=== PATIENT | female | born 1980 | race American Indian/Alaskan Native ===

== ENCOUNTER 2018-06-05 11:45 | Observation (INO) | payer MEDICAID ==
[2018-06-05] MEDS ORDERED: DEEP SEA NS PRN (11:47)
[2018-06-05] MEDS ORDERED: COLACE PO PRN (11:47)
[2018-06-05] MEDS ORDERED: TYLENOL PO PRN (11:47)
[2018-06-05] MEDS ORDERED: MYLICON PO PRN (11:47)
[2018-06-05] MEDS ORDERED: ZOFRAN IV PRN (11:47)
[2018-06-05] MEDS ORDERED: LACTATED RINGERS 1,000 ML IV SCH (12:00)
[2018-06-05] MEDS ORDERED: CELESTONE SOLUSPAN IM SCH (12:00)
[2018-06-05] MEDS: PROVENTIL IH SCH ×4 (12:28→21:06)
[2018-06-05 12:34] LABS: Basophils % (Auto) 0.4 % (0.0-1.8); Eosinophils # (Auto) 0.2 K/mm3 (0.0-0.4); Eosinophils % (Auto) 2.1 % (0.0-4.3); Hematocrit 33.3 % (30.3-42.9); Hemoglobin 10.8 gm/dl (10.1-14.3); Lymphocytes % (Auto) 19.9 % (13.4-35.0); Mean Corpuscular HGB Conc 33 % (30-34); Mean Corpuscular Hemoglobin 28 pg (28-32); Mean Corpuscular Volume 85 fl (79-97); Monocytes # (Auto) 0.4 K/mm3 (0.0-0.8); Monocytes % (Auto) 4.3 % (0.0-7.3); Platelet Count 237 K/mm3 (140-440); Red Blood Count 3.91 M/mm3 (3.65-5.03); Red Cell Distribution Width 13.9 % (13.2-15.2)
[2018-06-05 12:42] LABS: Bilirubin,Urine NEG (Negative); Blood,Urine NEG (Negative); Color,Urine Yellow (Yellow); Protein,Urine <15 mg/dL mg/dL (Negative); WBC,Urine < 1.0 /HPF (0.0-6.0)
[2018-06-05 13:11] LABS: Uric Acid 3.2 mg/dL (3.5-7.6)
[2018-06-05 13:22] LABS: Alanine Aminotransferase < 5 units/L (7-56)
--- NOTE | 2018-06-05 14:18 | XRay Report ---
AP CHEST: HISTORY: Dyspnea AP view of the chest demonstrates a normal mediastinal and cardiac contour with clear lungs and normal bony and soft tissue structures. IMPRESSION: Unremarkable AP chest.
--- NOTE | 2018-06-05 14:37 | Ultrasound Report ---
ULTRASOUND BIOPHYSICAL PROFILE: History: well being Technique: Transabdominal ultrasound with Doppler interrogation. 2 - breathing movements 2 - movements 2 - posture and tone 2 - Qualitative amniotic fluid volume 8 - TOTAL SCORE OF POSSIBLE 8 Heart Rate (bpm) 140
--- NOTE | 2018-06-05 14:40 | Ultrasound Report ---
OB ULTRASOUND History well being, chronic hypertension. Technique: Transabdominal ultrasound with Doppler interrogation. Gestation: Single Position: Cephalic Amniotic Fluid: Normal MAYRA = 9.3 cm Placenta: Fundal Placental Grade: 2 Heart Rate: 146 BPM Cervical length: 5.0 cm (Normal > 3 cm) BPD: 7.8 cm = 31 w 3 d HC: 29.1 cm = 32 w 0 d AC: 29.6 cm = 33 w 4 d FL: 6.1 cm = 31 w 4 d HC/AC Ratio: 0.98 Cephalic Index: 77.7 Estimated Weight: 2013 grams Clinical age = 31 w 3 d EDC: 08/04/18 US Gest. Age = 32 w 1 d EDC: 07/30/18 IMPRESSION: Viable, single intrauterine as described.
--- NOTE | 2018-06-05 17:36 | History and Physical Report ---
History of Present Illness Date of examination: 06/05/18 Date of admission: 06/05/18 14:35 Chief complaint: Hypertension, Dyspnea History of present illness: Pt is a 37 year old -Irish female CARLOS ENRIQUE 08/04/18 at 31w3d who presents from the office with wheezing and dyspnea at rest as well as hypertension 158/102. She reports good movement and denies vaginal bleeding, leakage of fluid or contractions as well as blurred vision, headache or RUQ pain. Of note, the patient does have a h/o asthma, last attack 2 months ago but she does not have any inhalers at home. She also has a h/o chronic hypertension on Labetalol 200 mg BID, and she did take her medication this morning. She has had two visits at [facility] since transfer into care from [facility] with comanagement by [facility]. Her is complicated by asthma, chronic hypertension on Labetalol, Advanced Maternal Age, H/o Preeclampsia, H/o on 17 hydroxyprogesterone, Trichomonas treated in January 2018, Genital Herpes, Obesity, and previous x 1. 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, trichomonas (January 2018, treated ) Social history: no significant social history - Obstetrical History Expected Date of Delivery: 08/04/18 Actual Gestation: 31 Week(s) 3 Day(s) : 6 Para: 3 Hx # Term Pregnancies: 2 Number of Pregnancies: 1 Spontaneous Abortions: 1 Induced : 1 Number of Living Children: 2 Medications and Allergies Allergies Allergy/AdvReac Type Severity Reaction Status Date / Time No Known Allergies Allergy Unverified 06/05/18 11:54 Home Medications Medication Instructions Recorded Confirmed Last Taken Type No Known Home Medications [No 06/05/18 06/05/18 Unknown History Reported Home Medications] Active Meds: Active Medications Acetaminophen (Tylenol) 650 mg PO Q4H PRN PRN Reason: Pain MILD(1-3)/Fever >100.5/MEADOWS Albuterol (Proventil) 2.5 mg IH Q4HRT [facility] Last Admin: 06/05/18 16:28 Dose: 2.5 mg Betamethasone Acet/Betameth SodPhos ([place] Soluspan) 12 mg IM Q24HR [facility] Stop: 06/06/18 10:01 Last Admin: 06/05/18 14:22 Dose: 12 mg Docusate Sodium (Colace) 100 mg PO Q12H PRN PRN Reason: Constipation Lactated Ringer's (Lactated Ringers) 1,000 mls @ 125 mls/hr IV DIRECT [facility] Labetalol HCl (Normodyne) 400 mg PO BID [facility] Multivitamins/Iron/Calcium ( Vitamin) 1 each PO QDAY [facility] Ondansetron HCl (Zofran) 4 mg IV Q6H PRN PRN Reason: Nausea And Vomiting Simethicone (Mylicon) 80 mg PO Q6H PRN PRN Reason: Gas pain Sodium Chloride (Deep Sea) 2 spray NS Q4H PRN PRN Reason: Congestion Review of Systems All systems: negative - Vital Signs Vital signs: Vital Signs Pulse Pulse Ox 106 H 100 06/05/18 11:52 06/05/18 11:52 Temp Pulse Resp BP Pulse Ox 98.7 F 97 H 20 129/74 100 06/05/18 15:58 06/05/18 17:34 06/05/18 16:45 06/05/18 16:43 06/05/18 17:34 - Physical Exam Breasts: Positive: deferred Cardiovascular: Regular rate Lungs: Positive: Clear to auscultation Abdomen: Positive: soft (obese, gravid). Negative: tenderness Uterus: Positive: enlarged (gravid ) Extremities: Positive: edema (trace) - Obstetrical FHR: auscultation normal Uterine Contraction Monitor Mode: External Uterine Contraction Pattern: Absent Uterine Tone Measurement Phase: Resting Results Result Diagrams: 06/05/18 11:50 06/05/18 11:50 Abnormal lab results 06/05/18 06/05/18 Range/Units 11:50 11:50 Seg Neutrophils % 73.3 H (40.0-70.0) % Creatinine 0.4 L (0.7-1.2) mg/dL Uric Acid 3.2 L (3.5-7.6) mg/dL ALT < 5 L (7-56) units/L All other labs normal. Assessment and Plan A: IUP at 31w3d Dyspnea and wheezing with h/o asthma Chronic hypertension on Labetalol 200 mg BID with elevated blood pressures Previous x 1 Advanced Maternal Age H/o Preeclampsia Obesity H/o on 17 hydroxyprogesterone Trichomonas treated in January 2018 Genital Herpes P: Admit to antepartum service Albuterol Nebulizer treatment Chest X ray with abdominal shield Increase Labetalol to 400 mg BID OB ultrasound and BPP PIH labs Serial BPs Betamethasone series MFM consult Continuous monitoring Closely monitor maternal and status
[2018-06-05] MEDS: NORMODYNE PO SCH (21:30)
[2018-06-06] MEDS ORDERED: FIORICET PO PRN (02:03)
--- NOTE | 2018-06-06 08:23 | Progress Note ---
Assessment and Plan A: IUP at 31w4d Dyspnea and wheezing with h/o asthma- much improved Chronic hypertension on Labetalol 200 mg BID with elevated blood pressures Previous x 1 Advanced Maternal Age H/o Preeclampsia Obesity H/o on 17 hydroxyprogesterone Trichomonas treated in January 2018 Genital Herpes P: Await 24 hr urine protein collection and second dose of Betamethasone Follow up MFM consult Consider discharge later today with close outpatient follow up Subjective - Subjective Date of service: 06/06/18 Principal diagnosis: IUP at 31 wks, astham exacerbation, hypertension Interval history: No overnight events. Pt had headache overnight, relieved by Fioricet. BP WNL. Pt reports no difficulty breathing after nebulizer treatments. Patient reports: movement normal, no new complaints, no loss of fluid, no vaginal bleeding, no contractions Objective - Vital Signs Vital Signs: Vital Signs - 12hr 06/05/18 06/05/18 06/05/18 20:24 20:29 20:35 Temperature Pulse Rate 112 H 105 H 110 H Respiratory Rate Blood Pressure O2 Sat by Pulse 100 99 100 Oximetry 06/05/18 06/05/18 06/05/18 20:40 20:43 20:45 Temperature Pulse Rate 112 H 118 H 117 H Respiratory Rate Blood Pressure 179/83 O2 Sat by Pulse 100 99 Oximetry 06/05/18 06/05/18 06/05/18 20:50 20:55 21:00 Temperature Pulse Rate 122 H 119 H 114 H Respiratory Rate Blood Pressure O2 Sat by Pulse 100 100 100 Oximetry 06/05/18 06/05/18 06/05/18 21:05 21:10 21:15 Temperature Pulse Rate 102 H 110 H 118 H Respiratory Rate Blood Pressure O2 Sat by Pulse 100 100 100 Oximetry 06/05/18 06/05/18 06/05/18 21:20 21:25 21:30 Temperature Pulse Rate 117 H 117 H 118 H Respiratory Rate Blood Pressure 148/72 148/72 O2 Sat by Pulse 100 100 100 Oximetry 06/05/18 06/05/18 06/05/18 21:35 21:40 21:43 Temperature Pulse Rate 119 H 120 H 118 H Respiratory Rate Blood Pressure 142/67 O2 Sat by Pulse 100 100 Oximetry 06/05/18 06/05/18 06/05/18 21:45 21:50 21:55 Temperature Pulse Rate 118 H 112 H 111 H Respiratory Rate Blood Pressure O2 Sat by Pulse 100 100 100 Oximetry 06/05/18 06/05/18 06/05/18 22:00 22:05 22:10 Temperature Pulse Rate 111 H 117 H 112 H Respiratory Rate Blood Pressure O2 Sat by Pulse 100 100 100 Oximetry 06/05/18 06/05/18 06/05/18 22:15 22:20 22:25 Temperature Pulse Rate 109 H 106 H 105 H Respiratory Rate Blood Pressure O2 Sat by Pulse 100 100 100 Oximetry 06/05/18 06/05/18 06/05/18 22:30 22:35 22:40 Temperature Pulse Rate 104 H 111 H 107 H Respiratory Rate Blood Pressure O2 Sat by Pulse 100 100 100 Oximetry 06/05/18 06/05/18 06/05/18 22:43 22:45 22:50 Temperature Pulse Rate 105 H 107 H 104 H Respiratory Rate Blood Pressure 127/73 O2 Sat by Pulse 100 100 Oximetry 06/05/18 06/05/18 06/05/18 22:55 23:00 23:05 Temperature Pulse Rate 98 H 113 H 108 H Respiratory Rate Blood Pressure O2 Sat by Pulse 100 100 100 Oximetry 06/05/18 06/05/18 06/05/18 23:10 23:15 23:20 Temperature Pulse Rate 106 H 107 H 88 Respiratory Rate Blood Pressure O2 Sat by Pulse 100 98 90 Oximetry 06/05/18 06/05/18 06/05/18 23:25 23:30 23:33 Temperature 98.0 F Pulse Rate 101 H 106 H Respiratory 18 Rate Blood Pressure O2 Sat by Pulse 100 100 Oximetry 06/05/18 06/05/18 06/05/18 23:35 23:40 23:43 Temperature Pulse Rate 108 H 102 H 102 H Respiratory Rate Blood Pressure 137/67 O2 Sat by Pulse 99 100 Oximetry 06/05/18 06/05/18 06/05/18 23:45 23:50 23:55 Temperature Pulse Rate 94 H 107 H 99 H Respiratory Rate Blood Pressure O2 Sat by Pulse 100 100 100 Oximetry 06/06/18 06/06/18 06/06/18 00:00 00:05 00:10 Temperature Pulse Rate 105 H 102 H 101 H Respiratory Rate Blood Pressure O2 Sat by Pulse 100 100 97 Oximetry 09/13/18 09/13/18 09/13/18 00:15 00:34 00:38 Temperature Pulse Rate 105 H 114 H 112 H Respiratory Rate Blood Pressure O2 Sat by Pulse 100 100 92 Oximetry 06/06/18 06/06/18 06/06/18 00:39 00:43 00:44 Temperature Pulse Rate 98 H 102 H 105 H Respiratory Rate Blood Pressure 127/58 O2 Sat by Pulse 98 100 Oximetry 06/06/18 06/06/18 06/06/18 00:49 00:54 00:57 Temperature Pulse Rate 104 H 107 H 115 H Respiratory Rate Blood Pressure O2 Sat by Pulse 99 99 89 Oximetry 06/06/18 06/06/18 06/06/18 00:59 01:04 01:09 Temperature Pulse Rate 125 H 118 H 110 H Respiratory Rate Blood Pressure O2 Sat by Pulse 100 100 100 Oximetry 06/06/18 06/06/18 06/06/18 01:14 01:19 01:24 Temperature Pulse Rate 108 H 109 H 109 H Respiratory Rate Blood Pressure O2 Sat by Pulse 99 100 99 Oximetry 06/06/18 06/06/18 06/06/18 01:29 01:34 01:39 Temperature Pulse Rate 105 H 106 H 109 H Respiratory Rate Blood Pressure O2 Sat by Pulse 99 98 98 Oximetry 06/06/18 06/06/18 06/06/18 01:44 01:45 01:50 Temperature Pulse Rate 110 H 111 H 113 H Respiratory Rate Blood Pressure 133/67 O2 Sat by Pulse 99 98 Oximetry 06/06/18 06/06/18 06/06/18 01:55 02:00 02:05 Temperature Pulse Rate 111 H 105 H 105 H Respiratory Rate Blood Pressure O2 Sat by Pulse 99 100 100 Oximetry 06/06/18 06/06/18 06/06/18 02:10 02:14 02:15 Temperature Pulse Rate 105 H 107 H Respiratory 20 Rate Blood Pressure O2 Sat by Pulse 100 99 Oximetry 06/06/18 06/06/18 06/06/18 02:20 02:25 02:30 Temperature Pulse Rate 105 H 107 H 110 H Respiratory Rate Blood Pressure O2 Sat by Pulse 98 98 98 Oximetry 06/06/18 06/06/18 06/06/18 02:35 02:40 02:44 Temperature Pulse Rate 108 H 101 H 105 H Respiratory Rate Blood Pressure 118/64 O2 Sat by Pulse 97 98 Oximetry 06/06/18 06/06/1818 02:45 02:50 02:55 Temperature Pulse Rate 110 H 106 H 105 H Respiratory Rate Blood Pressure O2 Sat by Pulse 98 98 99 Oximetry 06/06/18 06/06/18 06/06/18 03:00 03:05 03:10 Temperature Pulse Rate 112 H 104 H 105 H Respiratory Rate Blood Pressure O2 Sat by Pulse 98 99 98 Oximetry 06/06/18 06/06/18 06/06/18 03:15 03:20 03:25 Temperature Pulse Rate 109 H 102 H 97 H Respiratory Rate Blood Pressure O2 Sat by Pulse 97 99 100 Oximetry 06/06/18 06/06/18 06/06/18 03:30 03:35 03:40 Temperature Pulse Rate 98 H 103 H 98 H Respiratory Rate Blood Pressure O2 Sat by Pulse 98 98 97 Oximetry 06/06/18 06/06/18 06/06/18 03:43 03:45 03:54 Temperature 98.4 F Pulse Rate 102 H 99 H Respiratory 20 Rate Blood Pressure 121/59 O2 Sat by Pulse 99 Oximetry 06/06/18 06/06/18 06/06/18 03:55 03:56 04:01 Temperature Pulse Rate 105 H 106 H 98 H Respiratory Rate Blood Pressure O2 Sat by Pulse 88 96 100 Oximetry 06/06/18 06/06/18 06/06/18 04:06 04:11 04:16 Temperature Pulse Rate 98 H 101 H 99 H Respiratory Rate Blood Pressure O2 Sat by Pulse 99 99 100 Oximetry 06/06/18 06/06/18 06/06/18 04:21 04:26 04:31 Temperature Pulse Rate 94 H 95 H 97 H Respiratory Rate Blood Pressure O2 Sat by Pulse 99 99 99 Oximetry 06/06/18 06/06/18 06/06/18 04:36 04:41 04:43 Temperature Pulse Rate 99 H 87 96 H Respiratory Rate Blood Pressure 122/66 O2 Sat by Pulse 99 99 Oximetry 06/06/18 06/06/18 06/06/18 04:46 04:51 04:56 Temperature Pulse Rate 94 H 94 H 101 H Respiratory Rate Blood Pressure O2 Sat by Pulse 100 100 100 Oximetry 06/06/18 06/06/18 06/06/18 05:01 05:06 05:11 Temperature Pulse Rate 98 H 98 H 89 Respiratory Rate Blood Pressure O2 Sat by Pulse 99 100 99 Oximetry 06/06/18 06/06/18 06/06/18 05:16 05:21 05:26 Temperature Pulse Rate 94 H 93 H 86 Respiratory Rate Blood Pressure O2 Sat by Pulse 99 98 98 Oximetry 06/06/18 06/06/18 06/06/18 05:31 05:36 05:41 Temperature Pulse Rate 90 91 H 94 H Respiratory Rate Blood Pressure O2 Sat by Pulse 99 98 98 Oximetry 06/06/18 06/06/18 06/06/18 05:43 05:46 05:51 Temperature Pulse Rate 96 H 93 H 96 H Respiratory Rate Blood Pressure 120/57 O2 Sat by Pulse 98 99 Oximetry 06/06/18 06/06/18 06/06/18 05:58 05:59 06:04 Temperature Pulse Rate 84 104 H 93 H Respiratory Rate Blood Pressure O2 Sat by Pulse 63 L 100 100 Oximetry 06/06/18 06/06/18 06/06/18 06:09 06:14 06:19 Temperature Pulse Rate 96 H 87 82 Respiratory Rate Blood Pressure O2 Sat by Pulse 99 97 100 Oximetry 06/06/18 06/06/18 06/06/18 06:24 06:29 06:34 Temperature Pulse Rate 94 H 92 H 91 H Respiratory Rate Blood Pressure O2 Sat by Pulse 99 100 98 Oximetry 06/06/18 06/06/18 06/06/18 06:39 06:43 06:44 Temperature Pulse Rate 101 H 89 89 Respiratory Rate Blood Pressure 123/66 O2 Sat by Pulse 97 99 Oximetry 06/06/18 06/06/18 06/06/18 06:49 06:54 06:59 Temperature Pulse Rate 98 H 90 98 H Respiratory Rate Blood Pressure O2 Sat by Pulse 98 98 98 Oximetry 06/06/18 06/06/18 06/06/18 07:04 07:09 07:12 Temperature Pulse Rate 91 H 103 H 107 H Respiratory Rate Blood Pressure O2 Sat by Pulse 98 98 89 Oximetry 06/06/18 06/06/18 06/06/18 07:14 07:19 07:24 Temperature Pulse Rate 94 H 91 H 97 H Respiratory Rate Blood Pressure O2 Sat by Pulse 100 100 100 Oximetry 06/06/18 06/06/18 06/06/18 07:28 07:29 07:34 Temperature Pulse Rate 96 H 96 H 97 H Respiratory Rate Blood Pressure 115/57 O2 Sat by Pulse 100 100 Oximetry 06/06/18 06/06/18 06/06/18 07:39 07:43 07:44 Temperature Pulse Rate 103 H 98 H 95 H Respiratory Rate Blood Pressure 129/72 O2 Sat by Pulse 93 97 Oximetry 06/06/18 06/06/18 06/06/18 07:49 07:54 07:57 Temperature Pulse Rate 94 H 86 98 H Respiratory Rate Blood Pressure O2 Sat by Pulse 96 99 73 L Oximetry 06/06/18 06/06/18 06/06/18 07:59 08:04 08:09 Temperature Pulse Rate 97 H 99 H 88 Respiratory Rate Blood Pressure O2 Sat by Pulse 99 99 99 Oximetry 06/06/18 06/06/18 08:14 08:19 Temperature Pulse Rate 96 H 93 H Respiratory Rate Blood Pressure O2 Sat by Pulse 98 100 Oximetry - Exam Breasts: deferred Cardiovascular: Regular rate Lungs: Clear to auscultation Abdomen: Present: soft (obese, gravid ) Uterus: Present: normal (gravid) FHR: auscultation normal Uterine Contraction Monitor Mode: External Uterine Contraction Pattern: Absent Uterine Tone Measurement Phase: Resting Extremities: normal - Labs Labs: Abnormal Labs 06/05/18 06/05/18 11:50 11:50 Seg Neutrophils % 73.3 H Creatinine 0.4 L Uric Acid 3.2 L ALT < 5 L Laboratory Results - last 24 hr 06/05/18 06/05/18 06/05/18 11:50 11:50 11:50 WBC 10.3 RBC 3.91 Hgb 10.8 Hct 33.3 MCV 85 MCH 28 MCHC 33 RDW 13.9 Plt Count 237 Lymph % (Auto) 19.9 [place] % (Auto) 4.3 Eos % (Auto) 2.1 Baso % (Auto) 0.4 Lymph # 2.0 [place] # 0.4 Eos # 0.2 Baso # 0.0 Seg Neutrophils % 73.3 H Seg Neutrophils # 7.5 Creatinine 0.4 L Estimated GFR > 60 Uric Acid 3.2 L AST 9 ALT < 5 L Lactate Dehydrogenase 136 Urine Color Urine Turbidity Urine pH Ur Specific [place] Urine Protein Urine Glucose (UA) Urine Ketones Urine Blood Urine Nitrite Urine Bilirubin Urine Urobilinogen Ur Leukocyte Esterase Urine WBC (Auto) Urine RBC (Auto) U Epithel Cells (Auto) Blood Type O POSITIVE Antibody Screen Negative 06/05/18 Unknown WBC RBC Hgb Hct MCV MCH MCHC RDW Plt Count Lymph % (Auto) [place] % (Auto) Eos % (Auto) Baso % (Auto) Lymph # [place] # Eos # Baso # Seg Neutrophils % Seg Neutrophils # Creatinine Estimated GFR Uric Acid AST ALT Lactate Dehydrogenase Urine Color Yellow Urine Turbidity Slightly-cloudy Urine pH 6.0 Ur Specific [place] 1.020 Urine Protein <15 mg/dl Urine Glucose (UA) Neg Urine Ketones Neg Urine Blood Neg Urine Nitrite Neg Urine Bilirubin Neg Urine Urobilinogen 2.0 Ur Leukocyte Esterase Neg Urine WBC (Auto) < 1.0 Urine RBC (Auto) 1.0 U Epithel Cells (Auto) 7.0 Blood Type Antibody Screen
[2018-06-06] MEDS: NORMODYNE PO SCH (09:59)
[2018-06-06] MEDS ORDERED: PRENATAL VITAMIN PO SCH (10:00)
[2018-06-06] MEDS: PROVENTIL IH SCH (12:17)
--- NOTE | 2018-06-06 13:10 | Consultation ---
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, trichomonas (January 2018, treated ) - Obstetrical History : 6 Medications and Allergies Allergies Allergy/AdvReac Type Severity Reaction Status Date / Time No Known Allergies Allergy Unverified 06/05/18 11:54 Home Medications Medication Instructions Recorded Confirmed Last Taken Type No Known Home Medications [No 06/05/18 06/05/18 Unknown History Reported Home Medications] Active Meds: Active Medications Acetaminophen (Tylenol) 650 mg PO Q4H PRN PRN Reason: Pain MILD(1-3)/Fever >100.5/MEADOWS Last Admin: 06/05/18 23:33 Dose: 650 mg Acetaminophen/Butalbital/Caffeine (Fioricet) 2 tab PO Q4H PRN PRN Reason: Headache Last Admin: 06/06/18 02:14 Dose: 2 tab Albuterol (Proventil) 2.5 mg IH Q4HRT [facility] Last Admin: 06/06/18 12:17 Dose: Not Given Docusate Sodium (Colace) 100 mg PO Q12H PRN PRN Reason: Constipation Lactated Ringer's (Lactated Ringers) 1,000 mls @ 125 mls/hr IV DIRECT [facility] Labetalol HCl (Normodyne) 400 mg PO BID [facility] Last Admin: 06/06/18 09:59 Dose: Not Given Multivitamins/Iron/Calcium ( Vitamin) 1 each PO QDAY [facility] Ondansetron HCl (Zofran) 4 mg IV Q6H PRN PRN Reason: Nausea And Vomiting Simethicone (Mylicon) 80 mg PO Q6H PRN PRN Reason: Gas pain Sodium Chloride (Deep Sea) 2 spray NS Q4H PRN PRN Reason: Congestion - Vital Signs Vital signs: Vital Signs Pulse Pulse Ox 106 H 100 06/05/18 11:52 06/05/18 11:52 Temp Pulse Resp BP Pulse Ox 98.0 F 101 H 16 126/67 100 06/06/18 07:35 06/06/18 13:08 06/06/18 07:35 06/06/18 12:43 06/06/18 13:08 Results Result Diagrams: 06/05/18 11:50 06/05/18 11:50 Abnormal lab results 06/05/18 Range/Units 11:50 Creatinine 0.4 L (0.7-1.2) mg/dL Uric Acid 3.2 L (3.5-7.6) mg/dL ALT < 5 L (7-56) units/L All other labs normal. Assessment [facility] Full consult to follow
[2018-06-06] MEDS ORDERED: CELESTONE SOLUSPAN IM SCH (16:00)
--- NOTE | 2018-06-06 17:40 | Discharge Summary ---
Providers - Providers Date of Admission: 06/05/18 14:35 Date of discharge: 06/06/18 Attending physician: KESHAV CLARK 06/05/18 12:03 Consult to Physician [CONS] Routine Comment: Consulting Provider: MADDI CHING Physician Instructions: Reason For Exam: 31 wks, asthma, chtn Primary care physician: KESHAV CLARK Hospitalization Reason for admission: other (dyspnea, elevated blood pressure ) Discharge diagnosis: other (IUP at 31 wks, athsma, hypertension ) Hospital course: Pt was admitted with dyspnea and elevated blood pressure from the office. She had multiple nebulizer treatments and her labetalol was increased to 400 mg BID. She also received two doses of betamethasone, and a 24 hr urine was collected. She met discharge criteria on HD#1. She will follow up with both MFM and her primary OB next week. Prescriptions for Albuterol inhaler and Labetalol have been sent electronically to her preferred pharmacy. Condition at discharge: Stable Disposition: DC-01 TO HOME OR SELFCARE - Discharge Diagnoses (1) Chronic hypertension affecting Status: Acute (2) Asthma affecting in third trimester Status: Acute (3) Morbid obesity Status: Acute (4) AMA (advanced maternal age) primigravida 35+ Status: Acute Qualifiers: Trimester: third trimester Qualified Code(s): O09.513 - Supervision of elderly primigravida, third trimester (5) Previous delivery affecting Status: Acute (6) Status: Acute Qualifiers: Weeks of gestation: 31 weeks Qualified Code(s): Z3A.31 - 31 weeks gestation of (7) Dyspnea Status: Acute Qualifiers: Dyspnea type: shortness of breath Qualified Code(s): R06.02 - Shortness of breath; R06.00 - Dyspnea, unspecified; R06.01 - Orthopnea Plan - Provider Discharge Summary Activity: routine Diet: routine Instructions: routine Additional instructions: [] Smoking cessation referral if applicable(refer to patient education folder for contact #) [] Refer to [facility] Booklet Call your doctor immediately for: * Fever > 100.5 * Heavy vaginal bleeding ( >1 pad per hour) * Severe persistent headache * Shortness of breath * Reddened, hot, painful area to leg or breast * Drainage or odor from incision. * Keep incision clean and dry at all times and follow doctor's instructions regarding bathing/showering PRESCRIPTIONS SENT TO [facility] [place] - Follow up plan Follow up: KESHAV CLARK MD [Primary Care Provider] - 7 Days GALA OLIVARES MD [Staff Physician] - 06/11/18 (Please follow up at scheduled MFM appt on 06/11/18 and schedule an OB appt)
[2018-06-06 18:29] VITALS: BP 136/73
== END 2018-06-06 18:59 | disposition home or self-care (01) ==
LOC: LD 11:45 → TRG 11:45 → INTOOBSV 14:35 → LD 14:35
PROVIDERS: ADMIT Obstetrics & Gynecology; ATTEND Obstetrics & Gynecology
DX: O99.513 Diseases of the respiratory system complicating pregnancy, third trimester (principal); J45.909 Unspecified asthma, uncomplicated; O11.3 Pre-existing hypertension with pre-eclampsia, third trimester; O99.213 Obesity complicating pregnancy, third trimester; E66.01 Morbid (severe) obesity due to excess calories; Z3A.31 31 weeks gestation of pregnancy; Z68.41 Body mass index [BMI] 40.0-44.9, adult
CPT/HCPCS: 36415; 71045; 76816; 76819; 81001; 82565; 83615; 84156; 84450; 84460; 84550; 85025; 86850; 86900; 86901; 94640; 96372; G0378; J0702